=== PATIENT | male | born 1925 | race Caucasian/White ===

== ENCOUNTER 2016-08-17 17:42 | Inpatient (IN) | payer OTHER ==
--- NOTE | 2016-08-17 18:16 | EDPHY ---
H & P Time Seen by Provider: 08/17/16 17:59 HPI/ROS: CHIEF COMPLAINT: Chills, shaking. HISTORY OF PRESENT ILLNESS: This is an 89-year-old male with a history of pneumonia multiple times presenting with shaking chills, onset this afternoon after he ate lunch. He has had intermittent productive cough and shortness of breath "for weeks". The cough is productive of whitish phlegm. He feels short of breath with exertion, gradually increasing. He admits associated loss of appetite. He denies nausea, vomiting, diarrhea, or abdominal pain. He did get a flu shot this year. REVIEW OF SYSTEMS: A complete 10-point review of systems was performed and is negative except for those items mentioned in the HPI. Past Medical/Surgical History: Pacemaker, atrial fibrillation, pneumonia, congestive heart failure, nonischemic cardiomyopathy, hypertension, hyperlipidemia, chronic kidney disease. Social History: Here with daughter. Smoking Status: Never smoked Physical Exam: General Appearance: Alert, nontoxic Eyes: Pupils equal and round, no conjunctival pallor or injection ENT, Mouth: Mucous membranes moist Neck: Normal inspection Respiratory: Tachypneic. Lungs are clear to auscultation Cardiovascular: Regular rate and rhythm Gastrointestinal: Abdomen is soft and non-tender Neurological: A&O, nonfocal, normal gait Skin: Warm and dry, no rash Extremities: Nontender, no pedal edema Psychiatric: Mood and affect normal Constitutional: Initial Vital Signs Temperature (C) 37.1 C 08/17/16 17:47 Heart Rate 74 08/17/16 17:47 Respiratory Rate 18 08/17/16 17:47 Blood Pressure 117/64 08/17/16 17:47 O2 Sat (%) 90 L 08/17/16 17:47 O2 Delivery Mode Nasal Cannula O2 (L/minute) 2 Allergies/Adverse Reactions: No Known Allergies Allergy (Verified 08/17/16 17:46) Home Medications: Medication Instructions Recorded Warfarin Sodium [Coumadin 2MG (*)] 2 mg PO MOWEFR@0800 07/24/14 Warfarin Sodium [Coumadin 2MG (*)] 3 mg PO SUTUTHSA@08 07/24/14 Acetaminophen [Tylenol 325mg (*)] 650 mg PO Q4 PRN #0 tab 07/25/14 Furosemide [Lasix 20 MG (*)] 20 mg PO DAILY #0 tab 07/26/14 Simvastatin 10 mg PO DAILY 04/27/16 Medical Decision Making - Diagnostics Imaging: Chest x-ray reviewed by me reveals right middle lobe infiltrate. ED Course/Re-evaluation: I reviewed the patient's past medical notes including his H&P from 04/27/2016. An IV was established and labs ordered. Chest x-ray ordered. 500ml IV Saline administered for hydration. He does not meet the SIRS criteria, though I suspect that he has pneumonia. Patient's Lactic acid 2.9. WBC negative at 8.21. His chest x-ray is significant for right middle lobe pneumonia. 750mg IV Levaquin administered. 1937: Consulted with Dr. Galindo, hospitalist. He accepts admission to Med/Surg. Repeat lactate is 1.6. No evidence of severe sepsis. Differential Diagnosis: Differential diagnosis includes UTI, pyelonephritis, cholecystitis, influenza, cellulitis. - Data Points Laboratory Results: Laboratory Results 08/17/16 18:12 08/17/16 18:12 Medications Given: Discontinued Medications Acetaminophen (Tylenol) 650 mg PO EDNOW ONE Stop: 08/17/16 19:28 Last Admin: 08/17/16 19:58 Dose: 650 mg Sodium Chloride (Ns) 500 mls @ 0 mls/hr IV ONCE ONE PRN Reason: As Directed Stop: 08/17/16 18:31 Last Admin: 08/17/16 20:00 Dose: Not Given Sodium Chloride (Ns) 1,000 mls @ 0 mls/hr IV ONCE ONE PRN Reason: Wide Open Stop: 08/17/16 18:51 Last Admin: 08/17/16 18:54 Dose: 1,000 mls Levofloxacin/Dextrose (Levaquin 750 Mg (Premix)) 150 mls @ 100 mls/hr IV EDNOW ONE PRN Reason: Protocol Stop: 08/17/16 20:54 Last Admin: 08/17/16 19:58 Dose: 150 mls Sodium Chloride (Ns) 1,000 mls @ 3,000 mls/hr IV ONCE ONE Stop: 08/17/16 20:10 Last Admin: 08/17/16 19:59 Dose: 1,000 mls Departure - Departure Disposition: [facility] [place] Inpatient Acute Clinical Impression: Right middle lobe pneumonia Qualifiers: Pneumonia type: due to unspecified organism Qualifier Code: (J18.1) Lobar pneumonia, unspecified organism Condition: Fair Report Scribed for: Raissa Lutz Report Scribed by: Rolando Coats Date of Report: 08/17/16 Time of Report: 18:14 Physician Review and Approval Statement: 08/17/16 18:14 Portions of this note were transcribed by a medical laboratory scientist. I personally performed a history, physical exam, medical decision making, and confirmed accuracy of information the transcribed note.
[2016-08-17 18:24] LABS: % IMMATURE GRANULYOCYTES 0.4 % (0.0-1.1); ABSOLUTE IMMATURE GRANULOCYTES 0.03 10^3/uL (0.00-0.10); ADD DIFF? NO; ADD MORPH? NO; ADD SCAN? NO; ATYPICAL LYMPHOCYTE FLAG 10 (0-99); FRAGMENT RBC FLAG 0 (0-99); HEMATOCRIT 43.3 % (40.0-51.0); HEMOGLOBIN 14.4 g/dL (13.7-17.5); LEFT SHIFT FLG 0 (0-99); LIPEMIA HEMOLYSIS FLAG 80 (0-99); MEAN CELL HEMOGLOBIN 32.2 pg (27.9-34.1); MEAN CELL HEMOGLOBIN CONCENTR. 33.3 g/dL (32.4-36.7); MEAN CELL VOLUME 96.9 fL (81.5-99.8); MEAN PLATELET VOLUME 10.8 fL (8.7-11.7); PLATELET CLUMPS FLAG 10 (0-99); PLATELET COUNT 215 10^3/uL (150-400); RED BLOOD CELL COUNT 4.47 10^6/uL (4.40-6.38); RED CELL DISTRIBUTION WIDTH 14.4 % (11.5-15.2)
[2016-08-17] MEDS ORDERED: NS 500 ML IV ONE (18:30)
[2016-08-17] MEDS ORDERED: NS 1,000 ML IV ONE ×2 (18:50→19:51)
[2016-08-17 19:06] LABS: ANION GAP 12 mEq/L (8-16); CALCIUM 9.7 mg/dL (8.5-10.4); CARBON DIOXIDE 31 mEq/l (22-31); CHLORIDE 99 mEq/L (97-110); CREATININE 1.3 mg/dL (0.7-1.3); GLOMERULAR FILTRATION RATE 52; GLUCOSE 161 mg/dL (70-100); POTASSIUM 4.6 mEq/L (3.5-5.2); SODIUM 142 mEq/L (134-144)
[2016-08-17] MEDS ORDERED: ACETAMINOPHEN 325 MG TAB PO ONE (19:27)
--- NOTE | 2016-08-17 19:45 | DX ---
Portable AP Upright and Lateral Views of the Chest August 17, 2016 at 6:40 p.m. Clinical History: 89-year-old male with weakness and hypotension. Comparison Study: Chest, dated April 27, 2016. Findings: The patient is slightly rotated to the right. Oxygen tubing is present. Since the previous study, there has been development of a patchy infiltrate in the medial segment of the right middle lo be. There is also a tiny residual left pleural effusion versus pleural scarring, and some left retroc ardiac subsegmental atelectasis versus infiltrate versus parenchymal fibrosis. There is some linear s carring along the left lateral midchest. There are a couple of old healed right-sided rib fractures. There are senescent features of the spine, with a couple of old mild compression deformities at upper thoracic levels. There is underlying COPD. Mild chronic perihilar bronchial wall thickening is obser maximo. There is stable positioning of a dual-lead left subclavian transvenous pacemaker, with the proxi mal lead in the right atrium and the distal lead in the right ventricle. The cardiac silhouette size remains mildly enlarged. There is prominence of the hilar silhouette, likely reflecting some underlyi ng pulmonary hypertension. Impression: 1. Compared to April 27, 2016, there has been development of a pneumonia involving the medial seg ment of the right middle lobe. 2. COPD, with chronic perihilar bronchial wall thickening. 3. Tiny left pleural effusion versus pleural scarring with some left lower lobe subsegmental atelecta sis versus mild infiltrate versus parenchymal fibrosis.
[2016-08-17] MEDS ORDERED: ONDANSETRON 4 MG/2 ML VIAL IVP PRN (21:49)
[2016-08-17] MEDS ORDERED: ONDANSETRON DISINTEGRATING 4 MG TAB PO PRN (21:49)
[2016-08-17] MEDS ORDERED: ACETAMINOPHEN 325 MG TAB PO PRN (21:49)
[2016-08-17] MEDS: ERTAPENEM 1 GM in NS 100 ML IV SCH (22:02)
--- NOTE | 2016-08-17 22:34 | GHP ---
[f rep st] HISTORY AND PHYSICAL DATE OF ADMISSION: 08/17/2016 HISTORY OF PRESENT ILLNESS: The patient is an 89-year-old gentleman with history of recurrent aspira tion pneumonia, who presented with an episode of rigors that happened at lunch today. He has had a c ough for a couple of days. He denies a specific aspiration event. He sought care. He was found to have bilateral lower lobe infiltrates. In April, he had a speech video swallow that showed aspiration with thin liquids and large volume s. He has been going to frequent speech therapy since then. He has not been readmitted until today. He states he has been eating and drinking well but he also takes Ensure in attempt to gain weight. He has been unsuccessful. Other than that, he really has no complaints today. We briefly discussed the role of a feeding tube in a patient with chronic aspiration, and he declines this, noting his ag e and his desire to continue to eat. His response was actually quite telling, he said, "I'd refuse t o do any procedure to make me live perhaps 3 days longer." REVIEW OF SYSTEMS: Complete 10-point review of systems conducted, negative as noted in the HPI. PAST MEDICAL HISTORY: 1. Recurrent aspiration. 2. Nonischemic cardiomyopathy with an EF of 45% to 50%. 3. Mitral regurgitation. 4. Atrial fibrillation. 5. Hypertension. 6. Hyperlipidemia. 7. CKD with baseline creatinine about 1.1. 8. He is also status post pacemaker. 9. History of hernia repair. ALLERGIES: No known drug allergies. HOME MEDICATIONS: Warfarin, simvastatin, Lasix. SOCIAL HISTORY: He is originally from the [place], went to [employer]. 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 FAMILY HISTORY: Parents . PHYSICAL EXAM: VITAL SIGNS: Temperature 37.1, blood pressure 83/48, was 117/64 when he arrived, pul se 70, breathing 18 times a minute, 98% on 4 L. GENERAL: No acute distress. HEENT: Sclerae anicte nelida. Oropharynx clear. Mucous membranes moist. NECK: Supple. No lymphadenopathy or JVD. LUNGS: Crackles at the bases bilaterally. Good air movement. No wheeze. HEART: S1, S2 without significa nt murmurs. ABDOMEN: Soft, nontender, nondistended. LOWER EXTREMITIES: No edema. Calves nontende r. SKIN: Without rash. NEUROLOGIC: Nonfocal. LABORATORY DATA: White count 8.2, hematocrit 43, platelets 215,000. There was no INR. Venous lacta te was 2.9 on presentation, is now 1.6. After resuscitation, sodium 142, potassium 4.6, chloride 99, bicarb 31, BUN 37, creatinine 1.3, glucose 161. Influenza is pending. Chest x-ray, interpreted by me, shows bilateral infiltrates right greater than left. I have discussed the case with Dr. Raissa Lutz. ASSESSMENT AND PLAN: An 89-year-old gentleman with signs of recurrent aspiration pneumonia. 1. Aspiration. This is in fact aspiration pneumonia. I will treat him with ertapenem. 2. Sepsis. The patient has an elevated white count, source of infection, elevated lactate. This is similar to previous presentation. It is resolved with IV fluid resuscitation. 3. Atrial fibrillation. The patient is clinically in sinus, in a reasonable rate. We will continue current therapy. We will hold his Lasix. 4. Hyperlipidemia, continue statin. 5. Anticoagulation. We will continue his warfarin, although I wonder with his age and risk factor p rofile if permanent discontinuation of warfarin for stroke prophylaxis is not a reasonable decision. 6. Prophylaxis, therapeutically anticoagulated. 7. Disposition: Inpatient status with physical therapy, occupational therapy and speech therapy to see him. 8. Recurrent aspiration. The patient declines a feeding tube, which is appropriate. /[id number]/MODL
[2016-08-18 01:14] LABS: COLOR YELLOW; LEUKOCYTE ESTERASE,URINE NEGATIVE (NEGATIVE); NITRITE,URINE NEGATIVE (NEGATIVE)
[2016-08-18 04:43] LABS: % IMMATURE GRANULYOCYTES 0.4 % (0.0-1.1); ABSOLUTE IMMATURE GRANULOCYTES 0.03 10^3/uL (0.00-0.10); ADD DIFF? NO; ADD MORPH? NO; ADD SCAN? NO; ATYPICAL LYMPHOCYTE FLAG 10 (0-99); FRAGMENT RBC FLAG 0 (0-99); HEMATOCRIT 31.9 % (40.0-51.0); HEMOGLOBIN 10.6 g/dL (13.7-17.5); LEFT SHIFT FLG 0 (0-99); LIPEMIA HEMOLYSIS FLAG 80 (0-99); MEAN CELL HEMOGLOBIN 32.3 pg (27.9-34.1); MEAN CELL HEMOGLOBIN CONCENTR. 33.2 g/dL (32.4-36.7); MEAN CELL VOLUME 97.3 fL (81.5-99.8); MEAN PLATELET VOLUME 10.4 fL (8.7-11.7); PLATELET CLUMPS FLAG 0 (0-99); PLATELET COUNT 147 10^3/uL (150-400); RED BLOOD CELL COUNT 3.28 10^6/uL (4.40-6.38); RED CELL DISTRIBUTION WIDTH 14.3 % (11.5-15.2)
[2016-08-18 04:53] LABS: INR 3.81 (0.83-1.16); PROTIME(PATIENT) 38.2 SEC (12.0-15.0)
[2016-08-18 05:05] LABS: ANION GAP 5 mEq/L (8-16); CALCIUM 8.1 mg/dL (8.5-10.4); CARBON DIOXIDE 30 mEq/l (22-31); CHLORIDE 105 mEq/L (97-110); CREATININE 1.1 mg/dL (0.7-1.3); GLOMERULAR FILTRATION RATE > 60; GLUCOSE 88 mg/dL (70-100); POTASSIUM 4.3 mEq/L (3.5-5.2); SODIUM 140 mEq/L (134-144)
[2016-08-18] MEDS ORDERED: WARFARIN SODIUM 2 MG TAB PO SCH (08:00)
[2016-08-18] MEDS ORDERED: NON-FORMULARY NEW DRUG (Simvastatin [Simvastatin] 10 MG) PO SCH (09:00)
[2016-08-18] MEDS ORDERED: ENOXAPARIN 30 MG/0.3 ML SYR SC SCH (09:00)
[2016-08-18] MEDS: PRAVASTATIN SODIUM 20 MG TAB PO SCH (09:47)
[2016-08-18] MEDS ORDERED: NS 1,000 ML IV SCH (10:00)
[2016-08-18] MEDS: WARFARIN SODIUM 3 MG TAB PO SCH (10:00)
--- NOTE | 2016-08-18 15:38 | HOSPPROG ---
Hospitalist Progress Note Assessment/Plan: # Sepsis presumed secondary to aspiration pneumonia- received aggressive fluid resuscitation and empiric antibiotics overnight blood cultures NGTD - CXR ( personally reviewed and interpreted) RML infiltrate - continue empiric antibiotics # AHRF - 2/2 pneumonia - continue antibiotics- oxygen saturations 94% on 2L # Aspiration pna - follow cultures on current Abx # severe protein calorie malnutrition BMI 17 - dietary consultation # acute drop in HCT - suspect secondary to fluid resuscitation- no clinical bleeding- hgb 14-> 10 - follow H and H # proph - lovenox # diet - encourage PO # dispo - > 2 MN as presenting with sepsis requiring IVF and IV abx I have discussed the case with RN - will give more fluids this am Subjective: feels better Objective: Vital Signs Temp Pulse Resp BP Pulse Ox 36.3 C 70 16 101/64 99 08/18/16 12:40 08/18/16 12:40 08/18/16 12:40 08/18/16 12:40 08/18/16 12:40 Laboratory Results 08/18/16 04:34 08/18/16 04:34 08/17/16 08/18/16 08/19/16 05:59 05:59 05:59 Intake Total 2150 Output Total 200 150 Balance 1950 -150 PT 38.2 SEC (12.0-15.0) H 08/18/16 04:34 INR 3.81 (0.83-1.16) H 08/18/16 04:34 - Physical Exam Constitutional: cachectic Eyes: anicteric sclera Ears, Nose, Mouth, Throat: dry mucous membranes Cardiovascular: regular rate and rhythym, systolic murmur Respiratory: no respiratory distress, rhonchi Gastrointestinal: normoactive bowel sounds, soft, non-tender abdomen Genitourinary: no bladder fullness Skin: warm, normal color Musculoskeletal: No asymmetric calves Neurologic: AAOx3 Psychiatric: interacting appropriately, depressed Lymph, Heme, Immunologic: no cervical LAD ICD10 Worksheet Patient Problems: Problems Problem Status Diagnosed Chronic Disease Mgmt/Transitional Care Acute Congestive heart failure Acute Right middle lobe pneumonia Acute Afib - Atrial fibrillation Active Hyperlipidemia Active Pneumonia Acute
[2016-08-18] MEDS: ERTAPENEM 1 GM in NS 100 ML IV SCH (20:40)
[2016-08-19] MEDS ORDERED: WARFARIN SODIUM 2 MG TAB PO SCH (08:00)
[2016-08-19] MEDS: PRAVASTATIN SODIUM 20 MG TAB PO SCH (08:17)
[2016-08-19 14:06] LABS: INR 2.05 (0.83-1.16); PROTIME(PATIENT) 23.3 SEC (12.0-15.0)
--- NOTE | 2016-08-19 16:00 | HOSPPROG ---
Hospitalist Progress Note Assessment/Plan: # Sepsis presumed secondary to aspiration pneumonia- received aggressive fluid resuscitation and empiric antibiotics - since admit blood cultures remain NGTD - CXR ( personally reviewed and interpreted) RML infiltrate - continue empiric antibiotics # AHRF - 2/2 pneumonia - continue antibiotics- oxygen saturations 94% on RA during interview this am # Aspiration pna - follow cultures on current Abx # severe protein calorie malnutrition BMI 17 - dietary consultation # acute drop in HCT - suspect secondary to fluid resuscitation- no clinical bleeding- hgb 14-> 10 - follow H and H in am # atiral fibrillation - on anticoagulation INR 3.6->2.0 today after holding warfarin overnight - restart today # proph - warfarin # diet - encourage PO # dispo - > 2 MN as presenting with sepsis requiring IVF and IV abx I have discussed the case with PharmD- will restart warfarin today Subjective: feels weak Objective: Vital Signs Temp Pulse Resp BP Pulse Ox 36.4 C 70 16 102/59 L 94 08/19/16 15:39 08/19/16 15:39 08/19/16 15:39 08/19/16 15:39 08/19/16 15:39 Laboratory Results 08/18/16 04:34 08/18/16 04:34 08/18/16 08/19/16 08/20/16 05:59 05:59 05:59 Intake Total 2150 1000 400 Output Total 200 650 275 Balance 1950 350 125 PT 23.3 SEC (12.0-15.0) H D 08/19/16 13:35 INR 2.05 (0.83-1.16) H 08/19/16 13:35 - Physical Exam Constitutional: cachectic Eyes: anicteric sclera Ears, Nose, Mouth, Throat: dry mucous membranes Cardiovascular: regular rate and rhythym, systolic murmur Respiratory: no respiratory distress, reduced air movement Gastrointestinal: normoactive bowel sounds, soft, non-tender abdomen Genitourinary: no bladder fullness Skin: warm, normal color Musculoskeletal: No asymmetric calves Neurologic: AAOx3 Psychiatric: depressed, flat affect Lymph, Heme, Immunologic: no cervical LAD ICD10 Worksheet Patient Problems: Problems Problem Status Diagnosed Chronic Disease Mgmt/Transitional Care Acute Congestive heart failure Acute Right middle lobe pneumonia Acute Afib - Atrial fibrillation Active Hyperlipidemia Active Pneumonia Acute
[2016-08-19] MEDS: ERTAPENEM 1 GM in NS 100 ML IV SCH (21:27)
[2016-08-20 05:39] LABS: HEMATOCRIT 37.1 % (40.0-51.0); HEMOGLOBIN 12.3 g/dL (13.7-17.5); MEAN CELL HEMOGLOBIN 32.5 pg (27.9-34.1); MEAN CELL HEMOGLOBIN CONCENTR. 33.2 g/dL (32.4-36.7); MEAN CELL VOLUME 98.1 fL (81.5-99.8); RED BLOOD CELL COUNT 3.78 10^6/uL (4.40-6.38); RED CELL DISTRIBUTION WIDTH 14.5 % (11.5-15.2)
[2016-08-20 05:51] LABS: INR 2.44 (0.83-1.16); PROTIME(PATIENT) 26.7 SEC (12.0-15.0)
[2016-08-20 05:57] LABS: ANION GAP 7 mEq/L (8-16); CALCIUM 8.8 mg/dL (8.5-10.4); CARBON DIOXIDE 29 mEq/l (22-31); CHLORIDE 102 mEq/L (97-110); CREATININE 1.1 mg/dL (0.7-1.3); GLOMERULAR FILTRATION RATE > 60; GLUCOSE 94 mg/dL (70-100); POTASSIUM 4.5 mEq/L (3.5-5.2); SODIUM 138 mEq/L (134-144)
[2016-08-20] MEDS: PRAVASTATIN SODIUM 20 MG TAB PO SCH (07:44)
[2016-08-20] MEDS: WARFARIN SODIUM 3 MG TAB PO SCH (07:44)
[2016-08-20 07:53] VITALS: RESP 16
--- NOTE | 2016-08-20 11:19 | PDIAF ---
- Diagnosis Diagnosis: aspiration pna Code Status: Full Code - Medication Management Discharge Medications: Medications to Continue on Transfer Warfarin Sodium [Coumadin 2MG (*)] 2 mg PO MOWEFR@0800 07/24/14 [Last Taken ] Warfarin Sodium [Coumadin 2MG (*)] 3 mg PO SUTUTHSA@08 07/24/14 [Last Taken ] Acetaminophen [Tylenol 325mg (*)] 650 mg PO Q4 PRN #0 tab 07/25/14 [Last Taken 08/17/16] Simvastatin 10 mg PO DAILY 04/27/16 [Last Taken 08/17/16] Clindamycin HCl [Clindamycin] 300 mg PO Q6 #12 tab 08/20/16 [Last Taken Unknown] Discharge Medications: Refer to the Discharge Home Medication list for PRN reason. - Orders Services needed: Registered Nurse, Physical Therapy, Occupational Therapy, Speech Language Pathologist Diet Recommendation: no restrictions on diet Diet Texture: Regular Texture Diet, Thin Liquids - Labs/Radiology PT/INR Date: 08/21/16 (coumadin monitring on Abx) - Follow Up Care Current Providers and Referrals: SONIA TAYLOR [Primary Care Provider] - As per Instructions
[2016-08-20 12:53] VITALS: BP 100/63; PULSE 69; TEMP 98.3; O2SAT 91
[2016-08-20] MEDS ORDERED: DOCUSATE SODIUM 100 MG CAP PO SCH (13:00)
[2016-08-20] MEDS ORDERED: PROMETHAZINE HCL 25 MG/ML VIAL IVP PRN (14:06)
[2016-08-20] MEDS ORDERED: MAGNESIUM HYDROXIDE 30 ML UDCUP PO ONE (15:30)
--- NOTE | 2016-08-21 05:16 | GDS ---
[f rep st] DISCHARGE SUMMARY DISCHARGE DIAGNOSES: 1. Sepsis secondary to pulmonary infection. 2. Aspiration pneumonia. 3. Acute kidney injury. 4. Acute hypoxic respiratory failure secondary to aspiration. 5. Chronic aspiration. 6. Severe protein-calorie malnutrition. 7. Chronic atrial fibrillation. HISTORY OF PRESENT ILLNESS: This is an 89-year-old male with a history of known chronic aspiration, who presents with complaints of rigors. For details of patient's initial presentation, please see e history and physical dated 08/17/2016. PROCEDURES: Include chest x-ray on 08/17 that shows right middle lobe infiltrate. HOSPITAL COURSE BY ISSUE: 1. Sepsis. The patient presented with leukocytosis, fever, and tachycardia all consistent with sep sis. Presumed source was pulmonary. He received aggressive fluid resuscitation and empiric antibiot ics. Blood cultures obtained from his emergency room stay remained no growth at the time of his disp osition. 2. Presumed aspiration pneumonia with patient's known history and active infection at presentation. Patient was empirically covered for aspiration pneumonia, empirically with ertapenem, and ultimately disposition with clindamycin orally. The patient is on room air on the day of disposition, clinical ly much improved. 3. Acute kidney injury. This responded well to fluid resuscitation. 4. Atrial fibrillation. Patient remains rate controlled. He was continued on his home anticoagulat ion after the 1st night of hospitalization. INR on the day of disposition is 2.44. FOLLOWUP APPOINTMENTS: Patient is being discharged to [facility] for full support for disposition un til his returns home. PENDING STUDIES: At the time of this dictation include blood cultures which were drawn on 08/17/2016 , which are preliminary no growth to date. I spent greater than 30 minutes in the planning and coordination of this discharge. /[id number]/MODL
== END 2016-08-20 16:40 | DRG 871 ==
LOC: F3N 20:38
PROVIDERS: ADMIT Internal Medicine; ATTEND Hospitalist
DX: A41.9 Sepsis, unspecified organism (principal); J69.0 Pneumonitis due to inhalation of food and vomit; J96.01 Acute respiratory failure with hypoxia; E43 Unspecified severe protein-calorie malnutrition; I13.0 Hypertensive heart and chronic kidney disease with heart failure and stage 1 through stage 4 chronic kidney disease, or unspecified chronic kidney disease; N18.9 Chronic kidney disease, unspecified; I50.9 Heart failure, unspecified; I48.2 Chronic atrial fibrillation; E78.5 Hyperlipidemia, unspecified; Z95.0 Presence of cardiac pacemaker; Z79.01 Long term (current) use of anticoagulants
CPT/HCPCS: 92526-GN; 92610-GN; 96365; 97116-GP; 97161-GP; 97165-GO; 97535-GO; G8978-GP-CJ; G8979-GP-CI; G8987-GO-CI; G8988-GO-CI; G8996-GN-CJ; G8997-GN-CI; G8998-GN-CJ; J1335; J1956